=== PATIENT | female | born 1965 | race Caucasian/White ===

== ENCOUNTER 2019-12-09 20:54 | Inpatient (IN) | payer MEDICAID ==
[~2019-12-09] VITALS: Ht 152.4 cm; Wt 49.4 kg
[2019-12-09 21:00] VITALS: BP 142/96
[2019-12-09 21:48] LABS: BASOPHILS % (AUTO) 1.9 % (0.0-2.0); EOSINOPHILS # (AUTO) 0.1 K/uL (0-0.4); EOSINOPHILS % (AUTO) 3.4 % (0.0-4.0); HEMATOCRIT 42.5 % (36-48); HEMOGLOBIN 13.9 g/dL (12.0-16.0); LYMPHOCYTES % (AUTO) 45.1 % (20.5-51.1); MEAN CORPUSCULAR HEMOGLOBIN 34 pg (27-31); MEAN CORPUSCULAR HGB CONC 33 g/dL (33-37); MEAN CORPUSCULAR VOLUME 103.5 fL (80-94); MONOCYTES # (AUTO) 0.2 K/uL (0.8-1.0); MONOCYTES % (AUTO) 6.6 % (1.7-9.3); PLATELET COUNT (AUTO) 228 K/uL (140-450); RED CELL DISTRIBUTION WIDTH 15.6 % (11.6-13.7); WHITE BLOOD COUNT (AUTO) 2.3 K/uL (4.8-10.8)
[2019-12-09 22:03] LABS: ALBUMIN 2.5 g/dL (3.4-5.0); ANION GAP 11.9 (8-16); CARBON DIOXIDE 29.1 mmol/L (21-32); CREATININE 0.9 mg/dL (0.6-1.3); TOTAL BILIRUBIN 0.3 mg/dL (0.0-1.0)
[2019-12-09 22:27] LABS: APPEARANCE,URINE CLEAR (CLEAR); BILIRUBIN,URINE NEGATIVE (NEGATIVE); BLOOD, URINE NEGATIVE (NEGATIVE); COLOR,URINE YELLOW (YELLOW); LEUKOCYTE ESTERASE ,URINE NEGATIVE (NEGATIVE); NITRITE, URINE NEGATIVE (NEGATIVE); UGLUCOSE NEGATIVE (NEGATIVE)
[2019-12-10] MEDS ORDERED: ACETAMINOPHEN 325 MG TAB PO PRN (00:10)
[2019-12-10] MEDS ORDERED: ONDANSETRON 4 MG/2 ML VIAL IVP PRN (00:10)
[2019-12-10 00:52] LABS: FREE T4 (FREE THYROXINE) 1.38 ng/dL (0.76-1.46); MAGNESIUM 2.9 mg/dL (1.8-2.4); PHOSPHORUS 2.7 mg/dL (2.5-4.9); THYROID STIMULATING HORMONE 2.07 uIU/mL (0.34-3.74)
[2019-12-10] MEDS ORDERED: METO-486 GT (01:27)
[2019-12-10] MEDS ORDERED: MAGN400S60 GT (01:27)
[2019-12-10] MEDS ORDERED: ASPI-1822 GT (01:27)
[2019-12-10] MEDS ORDERED: RISP0.5T3 GT (01:27)
[2019-12-10] MEDS ORDERED: FAMO-90 GT (01:27)
[2019-12-10] MEDS ORDERED: ROB1 GT (01:27)
[2019-12-10] MEDS ORDERED: DEXT 5% /NACL 0.9% 1,000 ML IV SCH (01:45)
[2019-12-10 02:00] VITALS: BP 140/98
[2019-12-10] MEDS ORDERED: ACET-2619 PO (02:56)
[2019-12-10] MEDS ORDERED: FLEPED RC (02:56)
[2019-12-10] MEDS ORDERED: COL100L GT (02:56)
[2019-12-10] MEDS ORDERED: BISA-213 RC (02:56)
[2019-12-10] MEDS ORDERED: MULT-153 PO (02:56)
[2019-12-10] MEDS ORDERED: ALLO100T21 PO (02:56)
[2019-12-10] MEDS ORDERED: ONDA4TAB PO (02:56)
[2019-12-10] MEDS ORDERED: LACT100C5 PO (02:56)
[2019-12-10] MEDS ORDERED: prostat sf GT (02:56)
[2019-12-10] MEDS ORDERED: SIME80TA22 PO (02:56)
[2019-12-10] MEDS ORDERED: MIRABULK PO (02:56)
[2019-12-10] MEDS ORDERED: CYCL10TA36 PO (02:56)
[2019-12-10] MEDS ORDERED: SODIUM PHOSPHATE PEDIATRIC 67.5 ML ENEM RC PRN (03:45)
[2019-12-10] MEDS ORDERED: BISACODYL 10 MG SUPP RC PRN (03:45)
[2019-12-10] MEDS ORDERED: METOCLOPRAMIDE 10 MG/10 ML SYRP UDC GT PRN (03:45)
[2019-12-10 06:17] LABS: HEMATOCRIT 41.3 % (36-48); HEMOGLOBIN 13.7 g/dL (12.0-16.0); MEAN CORPUSCULAR HEMOGLOBIN 34 pg (27-31); MEAN CORPUSCULAR HGB CONC 33 g/dL (33-37); MEAN CORPUSCULAR VOLUME 102.6 fL (80-94); PLATELET COUNT (AUTO) 197 K/uL (140-450); RED BLOOD CELL COUNT(AUTO) 4.03 MIL/uL (4.20-5.40); RED CELL DISTRIBUTION WIDTH 15.2 % (11.6-13.7); WHITE BLOOD COUNT (AUTO) 3.3 K/uL (4.8-10.8)
[2019-12-10] MEDS: SIMETHICONE 80 MG TAB.CHEW PO SCH ×2 (06:17→14:04)
[2019-12-10] MEDS ORDERED: CRUSHER, PILL MC ONE (06:18)
[2019-12-10 06:38] LABS: ANION GAP 14.5 (8-16); CARBON DIOXIDE 23.3 mmol/L (21-32); CREATININE 0.8 mg/dL (0.6-1.3)
[2019-12-10 06:46] LABS: MAGNESIUM 2.5 mg/dL (1.8-2.4); PHOSPHORUS 2.6 mg/dL (2.5-4.9)
[2019-12-10 06:55] LABS: POTASSIUM 2.8 mmol/L (3.5-5.1)
[2019-12-10 07:01] LABS: CHOL/HDL RATIO 3.5 (1-4.5); LYMPHOCYTES % (MANUAL) 25 % (20-46); MONOCYTES % (MANUAL) 4 % (5-12)
[2019-12-10] MEDS ORDERED: SODIUM PHOSPHATE 118 ML ENEM RC PRN (07:02)
[2019-12-10 08:00] VITALS: BP 138/81
[2019-12-10] MEDS ORDERED: POTASSIUM CHLORIDE 40 MEQ, LIDOCAINE MPF 1% 25 MG in NACL 0.9% 250 ML IV SCH (08:00)
[2019-12-10] MEDS ORDERED: ASPIRIN 81 MG TAB.CHEW GT SCH (08:00)
[2019-12-10] MEDS ORDERED: risperiDONE 1 MG TAB GT SCH (08:00)
[2019-12-10] MEDS ORDERED: DOCUSATE 100 MG/10 ML UDC GT SCH (09:00)
[2019-12-10] MEDS ORDERED: MAGNESIUM HYDROXIDE 2400 MG/30 ML UDC GT SCH (09:00)
[2019-12-10] MEDS ORDERED: POLYETHYLENE GLYCOL 17 GM/PKT PO SCH ×2 (09:00→21:00)
[2019-12-10] MEDS ORDERED: PROSTAT SF GT SCH (09:00)
[2019-12-10] MEDS ORDERED: LACTOBACILLUS ACIDOPHILUS 100 MG PO SCH (09:00)
[2019-12-10] MEDS ORDERED: DOCUSATE SODIUM 100 MG GELCAP PO SCH (09:00)
[2019-12-10] MEDS: GLYCOPYRROLATE 1 MG TAB GT SCH ×3 (09:10→18:19)
[2019-12-10] MEDS: CYCLOBENZAPRINE 10 MG TAB PO SCH ×2 (09:11→14:04)
[2019-12-10] MEDS: LACTOBACILLUS RHAMNOSUS GG 1 EACH CAP GT SCH (09:12)
[2019-12-10] MEDS: FAMOTIDINE 20 MG TAB GT SCH (09:13)
[2019-12-10] MEDS: Z-GUARD PASTE TP SCH (09:14)
[2019-12-10] MEDS: ALLOPURINOL 100 MG TAB PO SCH (09:14)
[2019-12-10] MEDS: MULTIVITAMIN 1 TAB PO SCH (09:17)
[2019-12-10] MEDS ORDERED: MORPHINE SULFATE 2 MG/ML SYR IVP PRN (09:20)
[2019-12-10] MEDS ORDERED: MORPHINE SULFATE 2 MG/ML SYR IVP ONE (10:10)
[2019-12-10] MEDS ORDERED: MORPHINE SULFATE 2 MG/ML SYR IVP SCH (10:15)
[2019-12-10] MEDS: PIPERACILLIN/TAZOBACTAM 3.375 GM in DEXTROSE 5% 50 ML IV SCH ×3 (14:05→23:35)
[2019-12-10] MEDS ORDERED: SODIUM PHOSPHATE 118 ML ENEM RC SCH (15:00)
[2019-12-10 15:15] LABS: ANION GAP 12.8 (8-16); CARBON DIOXIDE 23.7 mmol/L (21-32); CREATININE 0.9 mg/dL (0.6-1.3); POTASSIUM 3.5 mmol/L (3.5-5.1)
[2019-12-10] MEDS ORDERED: MAGNESIUM CITRATE 300 ML BTL PO SCH (15:30)
[2019-12-10] MEDS: POTASSIUM CHL 30 MEQ/ D5-1/2NS 1,000 ML IV SCH (15:32)
[2019-12-10] MEDS ORDERED: SENNA 8.6 MG TAB PO SCH (17:00)
[2019-12-10] MEDS ORDERED: NEOMYCIN 500 MG TAB PO SCH (18:00)
[2019-12-10 20:57] LABS: ANION GAP 13.3 (8-16); CARBON DIOXIDE 25.4 mmol/L (21-32); CREATININE 1.1 mg/dL (0.6-1.3); POTASSIUM 3.7 mmol/L (3.5-5.1)
[2019-12-11] VITALS: BP 134/83
[2019-12-11] MEDS: POTASSIUM CHL 30 MEQ/ D5-1/2NS 1,000 ML IV SCH ×2 (02:50→05:00)
[2019-12-11] MEDS: PIPERACILLIN/TAZOBACTAM 3.375 GM in DEXTROSE 5% 50 ML IV SCH ×2 (05:00→12:07)
[2019-12-11 05:56] LABS: BASOPHILS % (AUTO) 1.3 % (0.0-2.0); EOSINOPHILS # (AUTO) 0.1 K/uL (0-0.4); EOSINOPHILS % (AUTO) 1.8 % (0.0-4.0); HEMOGLOBIN 12.9 g/dL (12.0-16.0); LYMPHOCYTES # (AUTO) 1.2 K/uL (2.5-16.5); LYMPHOCYTES % (AUTO) 32.8 % (20.5-51.1); MEAN CORPUSCULAR HEMOGLOBIN 33 pg (27-31); MEAN CORPUSCULAR HGB CONC 32 g/dL (33-37); MEAN CORPUSCULAR VOLUME 103.6 fL (80-94); MONOCYTES # (AUTO) 0.2 K/uL (0.8-1.0); MONOCYTES % (AUTO) 5.8 % (1.7-9.3); NEUTROPHILS # (AUTO) 2.2 K/uL (1.8-7.7); NEUTROPHILS % (AUTO) 58.3 % (42.2-75.2); PLATELET COUNT (AUTO) 177 K/uL (140-450); RED BLOOD CELL COUNT(AUTO) 3.86 MIL/uL (4.20-5.40); RED CELL DISTRIBUTION WIDTH 15.4 % (11.6-13.7); WHITE BLOOD COUNT (AUTO) 3.8 K/uL (4.8-10.8)
[2019-12-11 06:33] LABS: ANION GAP 8.8 (8-16); CARBON DIOXIDE 28.5 mmol/L (21-32); CREATININE 1.1 mg/dL (0.6-1.3); POTASSIUM 4.3 mmol/L (3.5-5.1)
[2019-12-11 06:37] LABS: MAGNESIUM 3.6 mg/dL (1.8-2.4)
[2019-12-11 08:00] VITALS: BP 115/64
[2019-12-11] MEDS ORDERED: PROPOFOL 200 MG/20 ML VIAL IV ONE (09:15)
[2019-12-11] MEDS: FAMOTIDINE 20 MG TAB GT SCH (11:42)
[2019-12-11] MEDS: GLYCOPYRROLATE 1 MG TAB GT SCH ×3 (11:43→16:37)
[2019-12-11] MEDS: MULTIVITAMIN 1 TAB PO SCH (11:43)
[2019-12-11] MEDS: LACTOBACILLUS RHAMNOSUS GG 1 EACH CAP GT SCH (11:43)
[2019-12-11] MEDS: ALLOPURINOL 100 MG TAB PO SCH (11:44)
[2019-12-11] MEDS: Z-GUARD PASTE TP SCH (12:03)
[2019-12-11 16:00] VITALS: BP 101/53
[2019-12-11] MEDS: METOCLOPRAMIDE 10 MG/10 ML SYRP UDC GT SCH (16:36)
[2019-12-11 20:00] VITALS: BP 119/66
[2019-12-11] MEDS: SENNA 8.6 MG TAB PO SCH (20:49)
[2019-12-11] MEDS: POLYETHYLENE GLYCOL 17 GM/PKT PO SCH (20:49)
[2019-12-12] VITALS: BP 118/76
[2019-12-12] MEDS: NACL 0.9% 1,000 ML IV SCH (05:35)
[2019-12-12 06:05] LABS: BASOPHILS # (AUTO) 0.1 K/uL (0.00-0.22); BASOPHILS % (AUTO) 1.7 % (0.0-2.0); EOSINOPHILS % (AUTO) 1.1 % (0.0-4.0); HEMATOCRIT 39.5 % (36-48); HEMOGLOBIN 12.7 g/dL (12.0-16.0); LYMPHOCYTES % (AUTO) 52.6 % (20.5-51.1); MEAN CORPUSCULAR HEMOGLOBIN 34 pg (27-31); MEAN CORPUSCULAR HGB CONC 32 g/dL (33-37); MEAN CORPUSCULAR VOLUME 103.7 fL (80-94); MONOCYTES # (AUTO) 0.2 K/uL (0.8-1.0); MONOCYTES % (AUTO) 6.2 % (1.7-9.3); NEUTROPHILS # (AUTO) 1.4 K/uL (1.8-7.7); NEUTROPHILS % (AUTO) 38.4 % (42.2-75.2); PLATELET COUNT (AUTO) 186 K/uL (140-450); RED BLOOD CELL COUNT(AUTO) 3.81 MIL/uL (4.20-5.40); RED CELL DISTRIBUTION WIDTH 15.6 % (11.6-13.7); WHITE BLOOD COUNT (AUTO) 3.7 K/uL (4.8-10.8)
[2019-12-12 06:42] LABS: ANION GAP 11.8 (8-16); CARBON DIOXIDE 26.1 mmol/L (21-32); CREATININE 1.1 mg/dL (0.6-1.3); POTASSIUM 4.9 mmol/L (3.5-5.1)
[2019-12-12 06:47] LABS: MAGNESIUM 2.5 mg/dL (1.8-2.4); PHOSPHORUS 3.2 mg/dL (2.5-4.9)
[2019-12-12] MEDS: METOCLOPRAMIDE 10 MG/10 ML SYRP UDC GT SCH ×3 (07:34→16:56)
[2019-12-12 08:00] VITALS: BP 123/63
[2019-12-12] MEDS: MUPIROCIN CA NASAL 2% 1GM TUBE NS SCH (08:37)
[2019-12-12] MEDS: SENNA 8.6 MG TAB PO SCH ×2 (08:37→20:58)
[2019-12-12] MEDS: GLYCOPYRROLATE 1 MG TAB GT SCH ×3 (08:37→16:56)
[2019-12-12] MEDS: LACTOBACILLUS RHAMNOSUS GG 1 EACH CAP GT SCH (08:37)
[2019-12-12] MEDS: POLYETHYLENE GLYCOL 17 GM/PKT PO SCH ×2 (08:37→20:58)
[2019-12-12] MEDS: ALLOPURINOL 100 MG TAB PO SCH (08:38)
[2019-12-12] MEDS: FAMOTIDINE 20 MG TAB GT SCH (08:38)
[2019-12-12] MEDS: CHLORHEXADINE GLUC 2% CLOTH TP SCH (08:38)
[2019-12-12] MEDS: MULTIVITAMIN 1 TAB PO SCH (08:38)
[2019-12-12] MEDS: Z-GUARD PASTE TP SCH (08:39)
[2019-12-12 16:00] VITALS: BP 99/63
[2019-12-13] VITALS: BP 138/85
[2019-12-13] MEDS: NACL 0.9% 1,000 ML IV SCH (05:25)
[2019-12-13] MEDS: METOCLOPRAMIDE 10 MG/10 ML SYRP UDC GT SCH ×2 (06:44→12:14)
[2019-12-13 07:01] LABS: ANION GAP 12.7 (8-16); CARBON DIOXIDE 26.9 mmol/L (21-32); POTASSIUM 4.6 mmol/L (3.5-5.1)
[2019-12-13 07:02] LABS: MAGNESIUM 2.1 mg/dL (1.8-2.4); PHOSPHORUS 3.5 mg/dL (2.5-4.9)
[2019-12-13 07:13] LABS: CREATININE 1.2 mg/dL (0.6-1.3)
[2019-12-13 07:14] LABS: BASOPHILS # (AUTO) 0.1 K/uL (0.00-0.22); BASOPHILS % (AUTO) 1.9 % (0.0-2.0); EOSINOPHILS % (AUTO) 1.4 % (0.0-4.0); HEMATOCRIT 43.9 % (36-48); HEMOGLOBIN 14.3 g/dL (12.0-16.0); LYMPHOCYTES # (AUTO) 1.2 K/uL (2.5-16.5); LYMPHOCYTES % (AUTO) 38.9 % (20.5-51.1); MEAN CORPUSCULAR HEMOGLOBIN 34 pg (27-31); MEAN CORPUSCULAR HGB CONC 33 g/dL (33-37); MEAN CORPUSCULAR VOLUME 103.1 fL (80-94); MONOCYTES # (AUTO) 0.3 K/uL (0.8-1.0); MONOCYTES % (AUTO) 9.6 % (1.7-9.3); NEUTROPHILS # (AUTO) 1.5 K/uL (1.8-7.7); NEUTROPHILS % (AUTO) 48.2 % (42.2-75.2); PLATELET COUNT (AUTO) 201 K/uL (140-450); RED BLOOD CELL COUNT(AUTO) 4.26 MIL/uL (4.20-5.40); RED CELL DISTRIBUTION WIDTH 15.5 % (11.6-13.7)
[2019-12-13 08:00] VITALS: BP 113/69
[2019-12-13] MEDS: FAMOTIDINE 20 MG TAB GT SCH (08:00)
[2019-12-13] MEDS ORDERED: LEVO750T2 PO (08:14)
[2019-12-13] MEDS: SENNA 8.6 MG TAB PO SCH (09:00)
[2019-12-13] MEDS: POLYETHYLENE GLYCOL 17 GM/PKT PO SCH (09:00)
[2019-12-13] MEDS: Z-GUARD PASTE TP SCH (09:07)
[2019-12-13] MEDS: CHLORHEXADINE GLUC 2% CLOTH TP SCH (09:07)
[2019-12-13] MEDS: LACTOBACILLUS RHAMNOSUS GG 1 EACH CAP GT SCH (09:17)
[2019-12-13] MEDS: GLYCOPYRROLATE 1 MG TAB GT SCH ×2 (09:17→12:14)
[2019-12-13] MEDS: ALLOPURINOL 100 MG TAB PO SCH (09:17)
[2019-12-13] MEDS: MULTIVITAMIN 1 TAB PO SCH (09:17)
[2019-12-13] MEDS: MUPIROCIN CA NASAL 2% 1GM TUBE NS SCH (09:21)
[2019-12-13 09:35] VITALS: BP 113/69
[2019-12-13] MEDS ORDERED: PIPE1PDS26 IV (11:05)
[2019-12-13] MEDS ORDERED: PIPERACILLIN/TAZOBACTAM 3.375 GM in DEXTROSE 5% 50 ML IV SCH (12:00)
== END 2019-12-13 13:45 | DRG 720 ==
LOC: MED 20:54 → MTU 12-10 00:18
PROVIDERS: ADMIT General Practice; ATTEND General Practice
PROC: 0DJD8ZZ Inspection of Lower Intestinal Tract, Via Natural or Artificial Opening Endoscopic (ICD-10-PCS; principal; 2019-12-11 08:45)
DX: A41.9 Sepsis, unspecified organism (principal); J96.21 Acute and chronic respiratory failure with hypoxia; J69.0 Pneumonitis due to inhalation of food and vomit; E43 Unspecified severe protein-calorie malnutrition; L89.151 Pressure ulcer of sacral region, stage 1; K56.609 Unspecified intestinal obstruction, unspecified as to partial versus complete obstruction; Z93.0 Tracheostomy status; R13.10 Dysphagia, unspecified; F72 Severe intellectual disabilities; Z68.21 Body mass index [BMI] 21.0-21.9, adult; E03.9 Hypothyroidism, unspecified; E87.6 Hypokalemia; G40.909 Epilepsy, unspecified, not intractable, without status epilepticus; G80.9 Cerebral palsy, unspecified; K21.9 Gastro-esophageal reflux disease without esophagitis; F29 Unspecified psychosis not due to a substance or known physiological condition; E83.41 Hypermagnesemia; Q90.9 Down syndrome, unspecified; Z74.01 Bed confinement status; Z86.718 Personal history of other venous thrombosis and embolism; Z93.1 Gastrostomy status; Z88.1 Allergy status to other antibiotic agents
CPT/HCPCS: 36415; 71045; 74018; 80048; 80053; 81003; 82140; 82150; 83036; 83605; 83690; 83735; 83880; 84100; 84439; 84443; 84484; 85025; 85610; 85730; 87040; 87070; 87081; 87186; 87205; 93005; 99285; J1644; J2001; J2270; J2543; J2704; J3480; J7030; J7042; J7060; J8597; Q0092

== ENCOUNTER 2019-12-22 18:29 | Inpatient (IN) | payer MEDICAID, SELFPAY ==
[~2019-12-22] VITALS: Ht 152.4 cm; Wt 69.9 kg
[~2019-12-22 18:29] MED LIST: ACET-2619 PO; ALLO100T21 PO; ASPI-1822 GT; BISA-213 RC; COL100L GT; CYCL10TA36 PO; FAMO-90 GT; FLEPED RC; LACT100C5 PO; MAGN400S60 GT; METO-486 GT; MIRABULK PO; MULT-153 PO; ONDA4TAB PO; PIPE1PDS26 IV; RISP0.5T3 GT; ROB1 GT; SIME80TA22 PO; prostat sf GT
[2019-12-22] MEDS ORDERED: NACL 0.9% 1,000 ML IV SCH (18:31)
[2019-12-22] MEDS ORDERED: cefTRIAXone 1,000 MG in DEXT 5% MINI-BAG PLUS 50 ML IV ONE (18:35)
[2019-12-22] MEDS ORDERED: ROB1 GT (18:42)
[2019-12-22] MEDS ORDERED: cefTRIAXone 1,000 MG VIAL ONE (18:44)
[2019-12-22 19:14] LABS: BASOPHILS % (AUTO) 0.3 % (0.0-2.0); HEMATOCRIT 44.7 % (36-48); HEMOGLOBIN 14.8 g/dL (12.0-16.0); LYMPHOCYTES # (AUTO) 0.8 K/uL (2.5-16.5); MEAN CORPUSCULAR HEMOGLOBIN 33 pg (27-31); MEAN CORPUSCULAR HGB CONC 33 g/dL (33-37); MEAN CORPUSCULAR VOLUME 100.4 fL (80-94); MONOCYTES # (AUTO) 0.3 K/uL (0.8-1.0); MONOCYTES % (AUTO) 2.2 % (1.7-9.3); NEUTROPHILS # (AUTO) 11.8 K/uL (1.8-7.7); NEUTROPHILS % (AUTO) 91.5 % (42.2-75.2); PLATELET COUNT (AUTO) 202 K/uL (140-450); RED BLOOD CELL COUNT(AUTO) 4.45 MIL/uL (4.20-5.40); RED CELL DISTRIBUTION WIDTH 15.5 % (11.6-13.7); WHITE BLOOD COUNT (AUTO) 12.9 K/uL (4.8-10.8)
[2019-12-22 19:18] VITALS: BP 90/63
[2019-12-22 19:30] LABS: ANION GAP 13.7 (8-16); CARBON DIOXIDE 24.4 mmol/L (21-32); CREATININE 1.2 mg/dL (0.6-1.3); POTASSIUM 4.1 mmol/L (3.5-5.1); TOTAL BILIRUBIN 0.2 mg/dL (0.0-1.0)
[2019-12-22] MEDS ORDERED: NACL 0.9% 1,000 ML IV ONE (19:55)
[2019-12-22] MEDS ORDERED: MEROPENEM 500 MG in NACL 0.9% 100 ML IV ONE (20:00)
[2019-12-22] MEDS ORDERED: HYDROXYCHLOROQUINE 200 MG TAB PO ONE (20:05)
[2019-12-22] MEDS ORDERED: AZITHROMYCIN 500 MG in DEXTROSE 5% 250 ML IV ONE (20:05)
[2019-12-22] MEDS ORDERED: AZITHROMYCIN 500 MG INJ VIAL IV ONE ×2 (20:45→20:54)
[2019-12-22] MEDS ORDERED: HYDROXYCHLOROQUINE 200 MG TAB ONE (21:19)
[2019-12-22 21:20] LABS: APPEARANCE,URINE CLEAR (CLEAR); BILIRUBIN,URINE NEGATIVE (NEGATIVE); BLOOD, URINE TRACE-I (NEGATIVE); COLOR,URINE YELLOW (YELLOW); LEUKOCYTE ESTERASE ,URINE NEGATIVE (NEGATIVE); NITRITE, URINE NEGATIVE (NEGATIVE); PH,URINE 6.5 (5.0-9.0); UGLUCOSE NEGATIVE (NEGATIVE)
[2019-12-22 21:26] LABS: WBC,URINE 0-5 /HPF (0-5)
[2019-12-22] MEDS ORDERED: DOCUSATE SODIUM 100 MG GELCAP PO PRN (22:15)
[2019-12-22] MEDS ORDERED: DEXT 5% /NACL 0.9% 1,000 ML IV ONE (22:15)
[2019-12-22] MEDS ORDERED: ONDANSETRON 4 MG/2 ML VIAL IM/IVP PRN (22:15)
[2019-12-22] MEDS ORDERED: ACETAMINOPHEN 325 MG TAB PO PRN (22:15)
[2019-12-22] MEDS ORDERED: MEROPENEM 500 MG VIAL IV ONE (22:23)
[2019-12-22 22:59] LABS: PROTHROMBIN TIME 10.7 secs (10.8-13.4)
[2019-12-22 23:00] VITALS: BP_SYST 102; BP_SYST 97; BP_DIAS 59; BP_DIAS 61
[2019-12-22 23:10] LABS: MAGNESIUM 3.1 mg/dL (1.8-2.4); PHOSPHORUS 3.7 mg/dL (2.5-4.9)
[2019-12-22] MEDS: PANTOPRAZOLE 40 MG INJ VIAL IVP SCH (23:36)
[2019-12-23] VITALS (43 sets, daily range): BP systolic 79–130; BP diastolic 51–79
[2019-12-23] MEDS ORDERED: HYDRAGUARD CREAM TP PRN (00:35)
[2019-12-23] MEDS: HYDRAGUARD CREAM TP SCH ×2 (01:00→12:36)
[2019-12-23] MEDS ORDERED: ACETAMINOPHEN 650 MG SUPP RC PRN (01:10)
[2019-12-23] MEDS ORDERED: ALBUTEROL HFA MDI 90 MCG/ACTUATION 8 GM INH SCH (06:00)
[2019-12-23 06:42] LABS: ANION GAP 13.9 (8-16); CARBON DIOXIDE 23.6 mmol/L (21-32); CREATININE 1.2 mg/dL (0.6-1.3); POTASSIUM 4.5 mmol/L (3.5-5.1)
[2019-12-23 06:45] LABS: MAGNESIUM 2.9 mg/dL (1.8-2.4); PHOSPHORUS 3.5 mg/dL (2.5-4.9)
[2019-12-23 07:26] LABS: HEMATOCRIT 43.7 % (36-48); HEMOGLOBIN 14.1 g/dL (12.0-16.0); MEAN CORPUSCULAR HEMOGLOBIN 33 pg (27-31); MEAN CORPUSCULAR HGB CONC 32 g/dL (33-37); MEAN CORPUSCULAR VOLUME 101.9 fL (80-94); PLATELET COUNT (AUTO) 189 K/uL (140-450); RED BLOOD CELL COUNT(AUTO) 4.29 MIL/uL (4.20-5.40); RED CELL DISTRIBUTION WIDTH 15.5 % (11.6-13.7); WHITE BLOOD COUNT (AUTO) 15.2 K/uL (4.8-10.8)
[2019-12-23 07:53] LABS: LYMPHOCYTES % (MANUAL) 8 % (20-46); MONOCYTES % (MANUAL) 6 % (5-12)
[2019-12-23] MEDS: PANTOPRAZOLE 40 MG INJ VIAL IVP SCH (09:09)
[2019-12-23] MEDS: DEXT 5% /NACL 0.9% 1,000 ML IV SCH ×2 (12:35→21:45)
[2019-12-23] MEDS: ALBUTEROL HFA MDI 90 MCG/ACTUATION 8 GM INH SCH ×2 (13:29→19:43)
[2019-12-23 16:37] LABS: ANION GAP 11.6 (8-16); CARBON DIOXIDE 23.9 mmol/L (21-32); CREATININE 0.9 mg/dL (0.6-1.3); POTASSIUM 4.5 mmol/L (3.5-5.1)
[2019-12-23] MEDS ORDERED: ALBUMIN HUMAN 5 % 500 ML IV ONE (17:15)
[2019-12-23] MEDS ORDERED: ALBUMIN HUMAN 5 % 250 ML IV SCH ×2 (17:45→20:30)
[2019-12-23] MEDS ORDERED: NACL 0.9% 1,000 ML IV ONE (17:55)
[2019-12-23] MEDS: NOREPINEPHRINE 8 MG in DEXTROSE 5% 250 ML IV PRN (18:28)
[2019-12-23] MEDS ORDERED: VANCOMYCIN PER PHARMACY MC PRN (21:25)
[2019-12-23] MEDS: AZITHROMYCIN 500 MG in DEXTROSE 5% 250 ML IV SCH (21:25)
[2019-12-23] MEDS ORDERED: VANCOMYCIN HCL 1,000 MG in NACL 0.9% 250 ML IV SCH (21:55)
[2019-12-23] MEDS ORDERED: VANCOMYCIN 1,000 MG VIAL ONE (22:40)
[2019-12-23] MEDS ORDERED: PIPERACILLIN/TAZOBACTAM 3.375 GM VIAL IV ONE (22:41)
[2019-12-23] MEDS ORDERED: cefTRIAXone 1,000 MG VIAL ONE (22:41)
[2019-12-23] MEDS ORDERED: AZITHROMYCIN 500 MG INJ VIAL IV ONE (22:48)
[2019-12-24] VITALS (108 sets, daily range): BP systolic 83–128; BP diastolic 46–87
[2019-12-24] MEDS: HYDRAGUARD CREAM TP SCH ×2 (01:00→12:20)
[2019-12-24] MEDS ORDERED: PIPERACILLIN/TAZOBACTAM 3.375 GM VIAL IV ONE (05:50)
[2019-12-24 06:08] LABS: ANION GAP 11.5 (8-16); CARBON DIOXIDE 23.1 mmol/L (21-32); POTASSIUM 4.6 mmol/L (3.5-5.1)
[2019-12-24 06:19] LABS: MAGNESIUM 3.1 mg/dL (1.8-2.4); PHOSPHORUS 2.3 mg/dL (2.5-4.9)
[2019-12-24 06:43] LABS: BASOPHILS % (AUTO) 0.1 % (0.0-2.0); HEMATOCRIT 40.4 % (36-48); HEMOGLOBIN 13.1 g/dL (12.0-16.0); LYMPHOCYTES % (AUTO) 3.5 % (20.5-51.1); MEAN CORPUSCULAR HEMOGLOBIN 33 pg (27-31); MEAN CORPUSCULAR HGB CONC 33 g/dL (33-37); MEAN CORPUSCULAR VOLUME 100.8 fL (80-94); MONOCYTES # (AUTO) 0.5 K/uL (0.8-1.0); MONOCYTES % (AUTO) 1.9 % (1.7-9.3); NEUTROPHILS # (AUTO) 26.3 K/uL (1.8-7.7); NEUTROPHILS % (AUTO) 94.5 % (42.2-75.2); PLATELET COUNT (AUTO) 197 K/uL (140-450); RED CELL DISTRIBUTION WIDTH 15.6 % (11.6-13.7)
[2019-12-24] MEDS: PIPERACILLIN/TAZOBACTAM 3.375 GM in DEXTROSE 5% 50 ML IV SCH ×5 (07:02→18:10)
[2019-12-24] MEDS: ALBUTEROL HFA MDI 90 MCG/ACTUATION 8 GM INH SCH ×3 (07:10→19:29)
[2019-12-24 07:45] LABS: WHITE BLOOD COUNT (AUTO) 27.9 K/uL (4.8-10.8)
[2019-12-24] MEDS: DEXT 5% /NACL 0.9% 1,000 ML IV SCH ×2 (07:45→18:10)
[2019-12-24] MEDS: PANTOPRAZOLE 40 MG INJ VIAL IVP SCH (08:49)
[2019-12-24] MEDS ORDERED: BISACODYL 10 MG SUPP RC SCH (09:00)
[2019-12-24] MEDS ORDERED: MAGNESIUM CITRATE 300 ML BTL GT SCH (09:15)
[2019-12-24] MEDS: POLYETHYLENE GLYCOL 17 GM/PKT GT SCH ×2 (09:54→20:57)
[2019-12-24] MEDS: SENNA 8.6 MG TAB GT SCH (09:55)
[2019-12-24] MEDS ORDERED: SODIUM PHOS / POTASSIUM PHOS 1 PKT PDR PO SCH (14:00)
[2019-12-24] MEDS: SODIUM PHOSPHATE 118 ML ENEM RC SCH (15:23)
[2019-12-24 17:18] LABS: ANION GAP 11.8 (8-16); CARBON DIOXIDE 23.5 mmol/L (21-32); CREATININE 1.1 mg/dL (0.6-1.3); POTASSIUM 4.3 mmol/L (3.5-5.1)
[2019-12-24] MEDS: AZITHROMYCIN 500 MG in DEXTROSE 5% 250 ML IV SCH (20:58)
[2019-12-24] MEDS: MORPHINE SULFATE 2 MG/ML SYR IVP PRN (20:58)
[2019-12-24] MEDS ORDERED: VANCOMYCIN 1,000 MG in DEXTROSE 5% 250 ML IV SCH (21:00)
[2019-12-24] MEDS ORDERED: BISACODYL 5 MG TABEC PO PRN (21:00)
[2019-12-24] MEDS: NOREPINEPHRINE 8 MG in DEXTROSE 5% 250 ML IV PRN (21:02)
[2019-12-25] VITALS (107 sets, daily range): BP systolic 80–123; BP diastolic 34–80
[2019-12-25] MEDS: HYDRAGUARD CREAM TP SCH ×2 (00:12→12:22)
[2019-12-25] MEDS: PIPERACILLIN/TAZOBACTAM 3.375 GM in DEXTROSE 5% 50 ML IV SCH ×5 (00:12→23:46)
[2019-12-25] MEDS: MORPHINE SULFATE 2 MG/ML SYR IVP PRN ×2 (06:00→12:29)
[2019-12-25] MEDS: DEXT 5% /NACL 0.9% 1,000 ML IV SCH ×3 (06:14→23:45)
[2019-12-25 06:17] LABS: ALBUMIN 0.9 g/dL (3.4-5.0); ANION GAP 9.6 (8-16); CARBON DIOXIDE 23.3 mmol/L (21-32); CREATININE 1.2 mg/dL (0.6-1.3); MAGNESIUM 3.8 mg/dL (1.8-2.4); PHOSPHORUS 2.5 mg/dL (2.5-4.9); POTASSIUM 3.9 mmol/L (3.5-5.1); TOTAL BILIRUBIN 0.2 mg/dL (0.0-1.0)
[2019-12-25] MEDS ORDERED: TPN PER PHARMACY MC PRN (06:45)
[2019-12-25 06:54] LABS: HEMATOCRIT 40.5 % (36-48); HEMOGLOBIN 13.1 g/dL (12.0-16.0); MEAN CORPUSCULAR HEMOGLOBIN 33 pg (27-31); MEAN CORPUSCULAR HGB CONC 32 g/dL (33-37); PLATELET COUNT (AUTO) 174 K/uL (140-450); RED BLOOD CELL COUNT(AUTO) 4.01 MIL/uL (4.20-5.40); RED CELL DISTRIBUTION WIDTH 15.7 % (11.6-13.7)
[2019-12-25 07:04] LABS: WHITE BLOOD COUNT (AUTO) 33.7 K/uL (4.8-10.8)
[2019-12-25] MEDS ORDERED: ALBUTEROL HFA MDI 90 MCG/ACTUATION 8 GM INH PRN (07:04)
[2019-12-25] MEDS ORDERED: ALBUTEROL HFA MDI 90 MCG/ACTUATION 8 GM INH SCH (07:04)
[2019-12-25 08:39] LABS: LYMPHOCYTES % (MANUAL) 5 % (20-46); MONOCYTES % (MANUAL) 2 % (5-12)
[2019-12-25] MEDS ORDERED: CRUSHER, PILL MC ONE (08:40)
[2019-12-25] MEDS: PANTOPRAZOLE 40 MG INJ VIAL IVP SCH (08:42)
[2019-12-25] MEDS: SENNA 8.6 MG TAB GT SCH ×2 (08:42→16:06)
[2019-12-25] MEDS: MAGNESIUM CITRATE 300 ML BTL PO SCH (08:42)
[2019-12-25] MEDS: POLYETHYLENE GLYCOL 17 GM/PKT GT SCH ×2 (08:42→20:08)
[2019-12-25] MEDS: SODIUM PHOSPHATE 118 ML ENEM RC SCH (08:51)
[2019-12-25] MEDS ORDERED: SODIUM PHOSPHATE 15 MMOLE in NACL 0.9% 250 ML IV SCH (09:00)
[2019-12-25] MEDS ORDERED: FLUCONAZOLE 400 MG/NS PREMIX 200 ML IV ONE (12:15)
[2019-12-25] MEDS: metroNIDAZOLE 500 MG/NS PREMIX 100 ML IV SCH ×2 (12:29→20:09)
[2019-12-25] MEDS ORDERED: NEOSTIGMINE 1:1000 10 MG/10 ML VIAL IV ONE (15:25)
[2019-12-25] MEDS ORDERED: ALBUMIN HUMAN 25% 100 ML IV SCH (15:45)
[2019-12-25] MEDS ORDERED: FUROSEMIDE 20 MG/2 ML VIAL IVP SCH (15:45)
[2019-12-25] MEDS ORDERED: MULTIVITAMIN-12 10 ML in DEXTROSE 50% 600 ML, AMINO ACIDS 8.5% 600 ML IV SCH ×3 (20:00)
[2019-12-25] MEDS: METOCLOPRAMIDE 10 MG/2 ML INJ VIAL IVP SCH (20:08)
[2019-12-25] MEDS: BLOOD GLUCOSE MONITORING 1 DEV DEV MC SCH (23:44)
[2019-12-26] VITALS (92 sets, daily range): BP systolic 54–120; BP diastolic 12–77
[2019-12-26] MEDS: HYDRAGUARD CREAM TP SCH ×2 (01:42→12:53)
[2019-12-26] MEDS: METOCLOPRAMIDE 10 MG/2 ML INJ VIAL IVP SCH ×3 (04:23→20:26)
[2019-12-26] MEDS: metroNIDAZOLE 500 MG/NS PREMIX 100 ML IV SCH ×3 (04:23→20:26)
[2019-12-26] MEDS: PIPERACILLIN/TAZOBACTAM 3.375 GM in DEXTROSE 5% 50 ML IV SCH ×2 (05:51→12:40)
[2019-12-26] MEDS: BLOOD GLUCOSE MONITORING 1 DEV DEV MC SCH ×3 (05:56→18:37)
[2019-12-26 06:10] LABS: HEMATOCRIT 36.7 % (36-48); HEMOGLOBIN 11.9 g/dL (12.0-16.0); MEAN CORPUSCULAR HEMOGLOBIN 33 pg (27-31); MEAN CORPUSCULAR HGB CONC 32 g/dL (33-37); MEAN CORPUSCULAR VOLUME 101.4 fL (80-94); PLATELET COUNT (AUTO) 154 K/uL (140-450); RED BLOOD CELL COUNT(AUTO) 3.62 MIL/uL (4.20-5.40); RED CELL DISTRIBUTION WIDTH 15.6 % (11.6-13.7)
[2019-12-26 06:30] LABS: WHITE BLOOD COUNT (AUTO) 36.8 K/uL (4.8-10.8)
[2019-12-26 06:44] LABS: ANION GAP 13.1 (8-16); CARBON DIOXIDE 20.4 mmol/L (21-32); CREATININE 1.2 mg/dL (0.6-1.3); POTASSIUM 3.5 mmol/L (3.5-5.1)
[2019-12-26 06:52] LABS: PHOSPHORUS 3.4 mg/dL (2.5-4.9)
[2019-12-26 06:58] LABS: MAGNESIUM 4.6 mg/dL (1.8-2.4)
[2019-12-26] MEDS: NOREPINEPHRINE 8 MG in DEXTROSE 5% 250 ML IV PRN (07:16)
[2019-12-26 07:24] LABS: EOSINOPHILS % (MANUAL) 0 % (0-4); LYMPHOCYTES % (MANUAL) 2 % (20-46); MONOCYTES % (MANUAL) 1 % (5-12)
[2019-12-26 07:25] LABS: BASOPHILS % (MANUAL) 0 % (0-2)
[2019-12-26] MEDS: ALBUTEROL SULFATE/IPRATROPIU 3 ML SOL IH PRN ×2 (08:04→13:48)
[2019-12-26] MEDS: KETOROLAC 15 MG/ML VIAL IM SCH ×3 (09:19→18:09)
[2019-12-26] MEDS: PANTOPRAZOLE 40 MG INJ VIAL IVP SCH (09:20)
[2019-12-26] MEDS: POLYETHYLENE GLYCOL 17 GM/PKT GT SCH ×2 (09:24→20:26)
[2019-12-26] MEDS: MAGNESIUM CITRATE 300 ML BTL PO SCH (09:24)
[2019-12-26] MEDS: SODIUM PHOSPHATE 118 ML ENEM RC SCH (09:25)
[2019-12-26] MEDS: SENNA 8.6 MG TAB GT SCH ×3 (09:28→18:10)
[2019-12-26] MEDS: DEXT 5% /NACL 0.9% 1,000 ML IV SCH (09:29)
[2019-12-26] MEDS ORDERED: FLUCONAZOLE 200 MG/NS PREMIX 100 ML IV SCH (12:00)
[2019-12-26 13:36] LABS: FERRITIN 183 ng/mL (15 - 150); TRANSFERRIN 51 mg/dL (200 - 370)
[2019-12-26] MEDS ORDERED: LEVOFLOXACIN 750 MG/D5W PREMIX 150 ML IV SCH (17:00)
[2019-12-26] MEDS ORDERED: VANCOMYCIN 500 MG VIAL PO SCH (18:00)
[2019-12-26] MEDS: VANCOMYCIN 1,000 MG VIAL PO SCH (18:09)
[2019-12-26] MEDS: INSULIN LISPRO SLIDING SCALE 100 UNITS/ML VIAL SUBQ PRN (18:37)
[2019-12-26] MEDS ORDERED: MULTIVITAMIN-12 10 ML in DEXTROSE 50% 720 ML, AMINO ACIDS 8.5% 620 ML, FAT EMULSION 20%... IV SCH ×4 (20:00)
[2019-12-26] MEDS ORDERED: DEXT 5% /NACL 0.9% 1,000 ML IV SCH (20:00)
[2019-12-26] MEDS: MEROPENEM 1,000 MG in NACL 0.9% 100 ML IV SCH (20:27)
[2019-12-26] MEDS: NOREPINEPHRINE 16 MG in DEXTROSE 5% 250 ML IV PRN (20:30)
[2019-12-27] VITALS (50 sets, daily range): BP systolic 85–138; BP diastolic 28–109
[2019-12-27] MEDS: BLOOD GLUCOSE MONITORING 1 DEV DEV MC SCH ×2 (00:12→06:00)
[2019-12-27] MEDS: KETOROLAC 15 MG/ML VIAL IM SCH ×2 (00:14→05:08)
[2019-12-27] MEDS: VANCOMYCIN 1,000 MG VIAL PO SCH ×2 (00:14→05:25)
[2019-12-27] MEDS: HYDRAGUARD CREAM TP SCH (00:24)
[2019-12-27] MEDS: INSULIN LISPRO SLIDING SCALE 100 UNITS/ML VIAL SUBQ PRN (00:34)
[2019-12-27] MEDS: metroNIDAZOLE 500 MG/NS PREMIX 100 ML IV SCH (05:08)
[2019-12-27] MEDS: METOCLOPRAMIDE 10 MG/2 ML INJ VIAL IVP SCH (05:08)
[2019-12-27 06:17] LABS: ANION GAP 11.9 (8-16); CARBON DIOXIDE 20.7 mmol/L (21-32); CREATININE 1.5 mg/dL (0.6-1.3); HEMATOCRIT 41.2 % (36-48); HEMOGLOBIN 13.2 g/dL (12.0-16.0); MEAN CORPUSCULAR HEMOGLOBIN 33 pg (27-31); MEAN CORPUSCULAR HGB CONC 32 g/dL (33-37); MEAN CORPUSCULAR VOLUME 102.1 fL (80-94); PLATELET COUNT (AUTO) 152 K/uL (140-450); POTASSIUM 3.6 mmol/L (3.5-5.1); RED BLOOD CELL COUNT(AUTO) 4.04 MIL/uL (4.20-5.40); RED CELL DISTRIBUTION WIDTH 15.7 % (11.6-13.7)
[2019-12-27 06:22] LABS: PHOSPHORUS 5.9 mg/dL (2.5-4.9)
[2019-12-27] MEDS: NOREPINEPHRINE 16 MG in DEXTROSE 5% 250 ML IV PRN (07:08)
[2019-12-27 07:41] LABS: WHITE BLOOD COUNT (AUTO) 44.2 K/uL (4.8-10.8)
[2019-12-27 07:42] LABS: LYMPHOCYTES % (MANUAL) 4 % (20-46); MONOCYTES % (MANUAL) 5 % (5-12)
[2019-12-27] MEDS: PANTOPRAZOLE 40 MG INJ VIAL IVP SCH (08:31)
[2019-12-27] MEDS: POLYETHYLENE GLYCOL 17 GM/PKT GT SCH (08:31)
[2019-12-27] MEDS: SENNA 8.6 MG TAB GT SCH (08:31)
[2019-12-27] MEDS: MAGNESIUM CITRATE 300 ML BTL PO SCH (08:32)
[2019-12-27] MEDS: SODIUM PHOSPHATE 118 ML ENEM RC SCH (08:37)
[2019-12-27] MEDS: MEROPENEM 1,000 MG in NACL 0.9% 100 ML IV SCH (08:42)
[2019-12-27 09:05] LABS: MAGNESIUM 7.4 mg/dL (1.8-2.4)
[2019-12-27] MEDS ORDERED: MORPHINE SULFATE 50 MG in NACL 0.9% 45 ML IV PRN (10:50)
[2019-12-27] MEDS ORDERED: LORazepam 2 MG/ML VIAL IVP PRN (10:55)
== END 2019-12-27 15:28 | disposition expired | DRG 720 ==
LOC: MED 18:29 → MIC 22:13 → EEVIPCON 22:13 → MIC 22:55
PROVIDERS: ADMIT General Practice; ATTEND General Practice
PROC: 5A1955Z Respiratory Ventilation, Greater than 96 Consecutive Hours (ICD-10-PCS; principal; 2019-12-23)
PROC: 02HV33Z Insertion of Infusion Device into Superior Vena Cava, Percutaneous Approach (ICD-10-PCS; 2019-12-23)
PROC: B548ZZA Ultrasonography of Superior Vena Cava, Guidance (ICD-10-PCS; 2019-12-23)
PROC: 05HY33Z Insertion of Infusion Device into Upper Vein, Percutaneous Approach (ICD-10-PCS; 2019-12-23)
DX: A41.9 Sepsis, unspecified organism (principal); J96.21 Acute and chronic respiratory failure with hypoxia; I46.9 Cardiac arrest, cause unspecified; E43 Unspecified severe protein-calorie malnutrition; Z99.11 Dependence on respirator [ventilator] status; J15.1 Pneumonia due to Pseudomonas; N17.0 Acute kidney failure with tubular necrosis; A04.72 Enterocolitis due to Clostridium difficile, not specified as recurrent; Z93.0 Tracheostomy status; F72 Severe intellectual disabilities; R65.20 Severe sepsis without septic shock; E87.1 Hypo-osmolality and hyponatremia; Z88.1 Allergy status to other antibiotic agents; G40.909 Epilepsy, unspecified, not intractable, without status epilepticus; G80.9 Cerebral palsy, unspecified; J98.11 Atelectasis; Q90.9 Down syndrome, unspecified; R13.10 Dysphagia, unspecified; Z93.1 Gastrostomy status; Z68.30 Body mass index [BMI] 30.0-30.9, adult; K21.9 Gastro-esophageal reflux disease without esophagitis; Z79.899 Other long term (current) drug therapy; Z86.718 Personal history of other venous thrombosis and embolism; Z03.818 Encounter for observation for suspected exposure to other biological agents ruled out; E02 Subclinical iodine-deficiency hypothyroidism; E79.0 Hyperuricemia without signs of inflammatory arthritis and tophaceous disease; Z68.26 Body mass index [BMI] 26.0-26.9, adult
CPT/HCPCS: 36415; 36600; 51702; 71045; 74018; 80048; 80053; 81001; 82550; 82607; 82728; 82746; 82803; 82948; 83540; 83605; 83690; 83735; 83880; 84100; 84443; 84478; 84484; 84550; 85025; 85045; 85610; 85730; 86140; 87040; 87070; 87081; 87086; 87186; 87205; 87804; 89220; 93005; 94002; 94003; 94640; 94664; 96361; 96365; 96367; 96375; 99291; A9153; C9113; J0456; J0696; J1450; J1642; J1644; J1885; J1940; J1956; J2060; J2185; J2270; J2543; J2710; J2765; J3370; J3490; J7030; J7042; J7060; P9041; P9046; Q0092